=== PATIENT | male | born 1960 | race Caucasian/White ===

== ENCOUNTER 2018-11-07 07:00 | Day surgery (SDC) | payer MEDICAID ==
[2018-11-07] MEDS ORDERED: FENTANYL PF 100MCG/2ML VIAL IV ONE (07:01)
[2018-11-07] MEDS ORDERED: PROPOFOL 10 MG/ML VIAL IV ONE (07:01)
[2018-11-07] MEDS ORDERED: LIDOCAINE 2% MDV (20MG/ML) 20ML VIAL IV ONE (07:01)
--- NOTE | 2018-11-08 07:21 | Operative Note ---
DATE OF SURGERY: 11/07/2018 OPERATION: ESOPHAGOGASTRODUODENOSCOPY. PREOPERATIVE DIAGNOSIS: Chronic GERD and dysphagia. POSTOPERATIVE DIAGNOSES: 1. LA grade D esophagitis. 2. Hiatal hernia. 3. 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 PROCEDURE: After informed consent was obtained from the patient, he was placed in the left lateral decubitus position in the endoscopy suite, sedated and monitored by the department of anesthesia. Once sedated, a well-lubricated [id number] gastroscope was placed in the posterior oropharynx under direct visualization and passed to the proximal esophagus. The endoscope was advanced through the proximal, mid, and distal esophagus. In the distal esophagus there was irregularity of the squamocolumnar border with LA grade D esophagitis changes. There was a small hiatal hernia. The gastric body, antrum, pylorus, duodenal bulb and sweep were unremarkable J-turn views of the proximal stomach revealed a small hiatal hernia. The endoscope was straightened and retracted from the patient with no new findings noted. RECOMMENDATIONS: I suggest the patient increase his proton pump inhibitor to omeprazole 40 mg b.i.d. We will repeat his upper endoscopy in 8 weeks, at which point we will obtain biopsies, as I was concerned about the potential for inflammatory changes confusing the findings. At that time, if his dysphagia persists, a dilation could be performed as well. As always, thank you for allowing me to participate in the healthcare of your patients. CC: DO JAY Tilley
== END 2018-11-07 08:35 | disposition home or self-care (01) ==
LOC: HOP 07:00
PROVIDERS: ATTEND Internal Medicine Gastroenterology
DX: K21.9 Gastro-esophageal reflux disease without esophagitis (principal); R13.10 Dysphagia, unspecified; K20.8 Other esophagitis; K44.9 Diaphragmatic hernia without obstruction or gangrene; K31.89 Other diseases of stomach and duodenum; E78.00 Pure hypercholesterolemia, unspecified
CPT/HCPCS: 43235; 00731; J3010

== ENCOUNTER 2019-01-09 06:32 | Day surgery (SDC) | payer MEDICAID ==
[2019-01-09] MEDS ORDERED: FENTANYL PF 100MCG/2ML VIAL IV ONE (06:33)
[2019-01-09] MEDS ORDERED: LIDOCAINE 2% MDV (20MG/ML) 20ML VIAL IV ONE (06:33)
[2019-01-09] MEDS ORDERED: PROPOFOL 10 MG/ML VIAL IV ONE (06:33)
--- NOTE | 2019-01-10 08:50 | Operative Note ---
DATE OF SURGERY: 01/09/2019 OPERATION: ESOPHAGOGASTRODUODENOSCOPY with biopsy. PREOPERATIVE DIAGNOSIS: History of ulcerative esophagitis and followup. POSTOPERATIVE DIAGNOSES: 1. Irregular GE junction suspicious for short-segment Cochran's. 2. Hiatal hernia. 3. Healed ulcers. PROCEDURE: After informed consent was obtained from the patient, she was placed in the left lateral decubitus position in the endoscopy suite, sedated and monitored by the department of anesthesia. Once sedated, a well-lubricated [id number] gastroscope was placed in the posterior oropharynx under direct visualization and passed to the proximal esophagus. The endoscope was advanced through the proximal, mid, and distal esophagus. The GE junction demonstrated irregularity of the squamocolumnar border suspicious for short-segment Cochran's. The ulcers previously visualized are no longer present. There was a small hiatal hernia. The gastric body, antrum, pylorus, duodenal bulb and sweep were unremarkable. J-turn views of the proximal stomach revealed a small hiatal hernia but no other abnormalities. The endoscope was straightened. GE junction biopsies obtained to rule out short-segment Cochran's. The endoscope removed from the patient with no new findings noted. RECOMMENDATIONS: The patient can try to reduce his proton pump inhibitor therapy to once daily before one of his major meals. If his symptoms recur, then I would reinstitute the b.i.d. regimen. In the meantime, we will await results of biopsies. If intestinal metaplasia is present, he would require repeat upper endoscopy every 3 years for Cochran's surveillance and dysplasia. As always, thank you for allowing me to participate in the healthcare of your patients. CC: DO JAY Tilley
== END 2019-01-09 08:25 | disposition home or self-care (01) ==
LOC: HOP 06:32
PROVIDERS: ATTEND Internal Medicine Gastroenterology
DX: Z87.19 Personal history of other diseases of the digestive system (principal); K31.9 Disease of stomach and duodenum, unspecified; K44.9 Diaphragmatic hernia without obstruction or gangrene; K20.9 Esophagitis, unspecified; E78.00 Pure hypercholesterolemia, unspecified